=== PATIENT | male | born 1975 | race Hispanic/Latino ===

== ENCOUNTER → 2021-12-16 | Outpatient (CLI) | payer OTHER | END | disposition home or self-care (01) | LOC: SHCH 08:18 | PROVIDERS: ATTEND Internal Medicine Cardiovascular Disease | DX: I35.0 Nonrheumatic aortic (valve) stenosis (principal); I51.7 Cardiomegaly; R01.1 Cardiac murmur, unspecified | CPT/HCPCS: 93306 ==